=== PATIENT | female | born 1975 | race Caucasian/White ===

== ENCOUNTER 2017-05-29 22:49 | Emergency (ER) | payer MEDICAID ==
[2017-05-29 23:27] VITALS: BP 208/133
--- NOTE | 2017-05-29 23:52 | EDM.PDOC ---
ED HPI GENERAL MEDICAL PROBLEM - General Chief Complaint: Lower Extremity Injury/Pain Stated Complaint: L LEG INJURY Time Seen by Provider: 05/29/17 22:58 Source of Information: Reports: Patient History Limitations: Reports: No Limitations - History of Present Illness INITIAL COMMENTS - FREE TEXT/NARRATIVE: right foot and ankle pain; this is a 41 year old female who fell out of a tree trying to retrieve a ?lantern from tree branches. injury to the ankle, denies any other injuries. Onset: Today Duration: Constant Location: Reports: Lower Extremity, Right Quality: Reports: Ache, Sharp Improves with: Reports: Immobilization Worsens with: Reports: Movement Context: Reports: Trauma Associated Symptoms: Reports: No Other Symptoms Treatments [employer]: Reports: NSAIDS right;ankle Pain Score (Numeric/FACES): 8 - Related Data Allergies Allergy/AdvReac Type Severity Reaction Status Date / Time No Known Allergies Allergy Verified 05/29/17 23:41 Home Meds: Home Meds Dextroamphetamine/Amphetamine [Adderall 10 mg Tablet] 10 mg PO BID 05/29/17 [ History] Ibuprofen [Motrin] 800 mg PO Q6HR 05/29/17 [History] Past Medical History Cardiovascular History: Reports: Hypertension [employer] History: Reports: Psychiatric History: Reports: OCD Social & Family History - Tobacco Use Years of Tobacco use: 15 Used Tobacco, but Quit: No Second Hand Smoke Exposure: Yes - Alcohol Use Days Per Week of Alcohol Use: 0 - Recreational Drug Use Recreational Drug Use: No Review of Systems - Review of Systems Review Of Systems: See Below Constitutional: Reports: No Symptoms Eyes: Reports: No Symptoms Ears: Reports: No Symptoms Nose: Reports: No Symptoms Mouth/Throat: Reports: No Symptoms Respiratory: Reports: No Symptoms Cardiovascular: Reports: No Symptoms GI/Abdominal: Reports: No Symptoms Musculoskeletal: Reports: Leg Pain, Foot Pain, Joint Pain, Joint Swelling Skin: Reports: Bruising Neurological: Reports: No Symptoms Psychiatric: Reports: No Symptoms ED EXAM, GENERAL - Physical Exam Exam: See Below General Appearance: Alert, WD/WN, Anxious, Mild Distress Ears: Normal External Exam Nose: Normal Inspection Throat/Mouth: Normal Inspection Head: Atraumatic, Normocephalic Neck: Normal Inspection, Supple, Non-Tender Respiratory/Chest: No Respiratory Distress Peripheral Pulses: 2+: Posterior Tibial (L), Posterior Tibial (R), Dorsalis Pedis (L), Dorsalis Pedis (R) Extremities: Joint Swelling (right ankle and lateral foot with mild edema and bruising. xray negative for fx), Leg Pain Neurological: Alert, Oriented, Normal Cognition, Normal Gait Course - Vital Signs Last Recorded V/S: Last Vital Signs Temp 36.6 C 05/29/17 23:25 Pulse 116 H 05/29/17 23:25 Resp 12 05/29/17 23:25 BP 208/133 H 05/29/17 23:25 Pulse Ox 98 05/29/17 23:25 - Orders/Labs/Meds Orders: Active Orders 24 hr Category Date Time Status Ankle Min 3V Rt [CR] Stat Exams 05/29/17 23:21 Taken Foot Comp Min 3V Rt [CR] Stat Exams 05/29/17 23:21 Taken DME for Discharge [COMM] Urgent Oth 05/29/17 23:23 Ordered - Radiology Interpretation Free Text/Narrative:: xray no fracture is seen. will place in ortho boot, continue with crutches. follow up with [facility] for recheck on Friday Departure - Departure Time of Disposition: 23:59 Disposition: Home, Self-Care 01 Condition: Good Clinical Impression: Other ankle sprain and strain - Discharge Information Referrals: PCP,None [Primary Care Provider] - Forms: ED Department Discharge Care Plan Goals: right ankle sprain -rest -splint -ice intermittently for the next 2 days for pain and swelling -keep using crutches and immobilize with Orthoboot -take Motrin 600mg every 6 to 8 hours as needed for pain -take Tramadol 50mg every 6 to 8 hours as needed for acute pain #15 -referral to Orthopedics on Friday -work slip given return to clinic or er if has increased pain, swelling, redness or any concerns. - Problem List & Annotations (1) Other ankle sprain and strain SNOMED Code(s): 704355276 Code(s): S93.499A - SPRAIN OF OTHER LIGAMENT OF UNSPECIFIED ANKLE, INIT ENCNTR; S96.899A - INJ OTH MUSCLES AND TENDONS AT ANK/FT LEVEL, UNSP FOOT, INIT Status: Acute Priority: Medium Current Visit: Yes - Problem List Review Problem List Initiated/Reviewed/Updated: Yes - My Orders Last 24 Hours: My Active Orders 05/29/17 23:21 Ankle Min 3V Rt [CR] Stat Foot Comp Min 3V Rt [CR] Stat 05/29/17 23:23 DME for Discharge [COMM] Urgent - Assessment/Plan Last 24 Hours: My Active Orders 05/29/17 23:21 Ankle Min 3V Rt [CR] Stat Foot Comp Min 3V Rt [CR] Stat 05/29/17 23:23 DME for Discharge [COMM] Urgent Plan: right ankle sprain -xray of right ankle negative for acute bony injury or fracture, await radiologist report -rest -splint -ice intermittently for the next 2 days for pain and swelling -keep using crutches and immobilize with Orthoboot -take Motrin 600mg every 6 to 8 hours as needed for pain -take Tramadol 50mg every 6 to 8 hours as needed for acute pain #15 -referral to Orthopedics on Friday -work slip given return to clinic or er if has increased pain, swelling, redness or any concerns.
--- NOTE | 2017-05-30 08:40 | CR ---
Foot Comp Min 3V Rt, Ankle Min 3V Rt INDICATION: pain and edema. injury FINDINGS: Tiny plantar calcaneal spur. Right foot and ankle otherwise negative. No acute fracture.
== END 2017-05-30 00:29 | disposition home or self-care (01) ==
LOC: JP.ED 22:49
DX: S93.491A Sprain of other ligament of right ankle, initial encounter (principal); I10 Essential (primary) hypertension; W20.8XXA Other cause of strike by thrown, projected or falling object, initial encounter
CPT/HCPCS: 73610-26-RT; 73610-RT; 73630-26-RT; 73630-RT; 99284